=== PATIENT | female | born 2000 | race Caucasian/White ===

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

== ENCOUNTER 2022-07-02 11:41 | Emergency (ER) | payer BC, SELFPAY ==
[2022-07-02] VITALS (9 sets, daily range): BP systolic 107–122; BP diastolic 67–79; PULSE 69–89; RESP 20; TEMP 36.6; O2SAT 97–100; BMI 29.3
--- NOTE | 2022-07-02 12:36 | ED.GENADULT ---
HPI - General Adult General Time Seen by Provider: 12:36 Date Seen: 07/02/22 Chief complaint: Headache/Migraine Stated complaint: Headache Time Seen by Provider: 07/02/22 12:01 Source: patient Mode of arrival: ambulatory Limitations: no limitations History of Present Illness HPI narrative: Arlette is a 21-year-old female past medical history includes chronic migraines, depression anxiety presents emerged department via private car with a headache. Patient states that she has chronic migraines which are on the right side frontal area, there there daily, she takes nortriptyline 35 mg at bedtime for preventive medication, migraines usually migrate across her forehead, tension-like as well as pounding in nature. Patient denies any aura, patient denies any photophobia or diplopia, patient denies any neck pain. However when she moves around the headache gets worse, headache has been present since Tuesday, Benadryl has helped in the past, she did take some early this morning but it did not help with her symptoms, she has associated nausea but no vomiting, she denies any focal weakness, paresthesias or numbness. She denies any lightheadedness or dizziness. No fevers or chills, no cough, chest pain or shortness of breath. Headache was not a thunderclap, but patient states this is the worse headache she has had, due to worsening symptoms presents emerged department. Related Data Home Medications Medication Instructions Recorded Confirmed Zyrtec 12/10/21 escitalopram oxalate 20 mg tablet 20 mg PO DAILY 12/10/21 12/10/21 (Lexapro) fluticasone propionate 50 1 spray intranasal DAILY PRN 12/10/21 12/10/21 mcg/actuation nasal spray,suspension nortriptyline 25 mg capsule 25 mg 12/10/21 Previous Rx's Medication Instructions Recorded prochlorperazine maleate 10 mg 10 mg PO Q6H PRN #10 tabs 07/02/22 tablet (Compazine) Allergies Allergy/AdvReac Type Severity Reaction Status Date / Time No Known Drug Allergies Allergy Verified 12/10/21 16:58 Review of Systems Status of ROS: Reports: 10 or more systems reviewed and unremarkable except as noted in History and below PFSH PFSH Social History Smoking Status: Never smoker Do you use any of these nicotine containing products: None Second hand tobacco smoke exposure: No How often do you have a drink containing alcohol: 2-3 times a week How many standard drinks containing alcohol do you have on a typical day: 1 or 2 How often do you have six or more drinks on one occasion: Never AUDIT-C Alcohol total score: 3 Non-prescribed substance use: marijuana (any form) service: No Exam Narrative: Exam Narrative: General: No obvious distress sitting comfortably, nontoxic in appearance HEENT: Tympanic membranes within normal limits bilaterally, oropharynx is clear and moist, pupils equal round reactive to light, extraocular muscles intact Neck: No meningeal signs, supple full range of motion Lungs: Clear to auscultation bilaterally Heart: NSR, S1S2 Abdomen: Soft nontender, bowel sounds present Muscle skeletal: +5 strength upper lower extremities bilaterally Neuro: Alert awake and oriented x3, GCS 15, no focal deficits Psych: Mood and affect normal Const: Vital Signs, click to edit/add: Vital Signs - 24 hr 07/02/22 11:55 Temperature 97.9 F Pulse Rate [Pulse Oximeter] 81 Respiratory Rate 20 Blood Pressure [Ri ght Upper Arm] 122/76 Pulse Oximetry 97 Oxygen Delivery Me thod Room Air Course Course Hospital Course: 12:45 PM: AIDET performed. Vitals are normal at this time, plan to treat as a exacerbation of the chronic migraine, patient states she has not had a migraine like this in the past, it was not a thunder clap headache, will hold on imaging at this time, will try some IV Compazine 5 mg, 15 mg IV Toradol and 0.9 normal saline bolus 1st to see if she gets some symptomatic relief before ordering any imaging. Patient was in agreement. Differential diagnosis include life-threatening of subarachnoid hemorrhage, meningitis, encephalitis, carbon monoxide poisoning and intracerebral hemorrhage. Other differential diagnosis include but not limited to migraine, cluster headache, tension headache, [employer]ING [employer] vasculitis, mass lesion, temporal arteritis, acute closed angle glaucoma supple or trigeminal neuralgia and sinusitis. Reevaluation(s) Reevaluation #1: Patient was up ambulating to the bathroom, she is feeling better after above care given, pain is 5/10, will give additional 5 mg IV Compazine. Time: 13:45 Vital Signs Vital signs: Initial Vital Signs Temperature 97.9 F 07/02/22 11:55 Temperature Source Temporal Artery Scan 07/02/22 11:55 Pulse Rate 81 07/02/22 11:55 Pulse Rhythm Regular 07/02/22 11:55 Respiratory Rate 20 07/02/22 11:55 Blood Pressure 122/76 07/02/22 11:55 Blood Pressure Mean 91 07/02/22 11:55 Blood Pressure Position Supine 07/02/22 11:55 Pulse Oximetry 97 07/02/22 11:55 Oxygen Delivery Method Room Air 07/02/22 11:55 Vital Signs Temperature 97.9 F 07/02/22 11:55 Pulse Rate 81 07/02/22 11:55 Respiratory Rate 20 07/02/22 11:55 Blood Pressure 122/76 07/02/22 11:55 Pulse Oximetry 97 07/02/22 11:55 Oxygen Delivery Method Room Air 07/02/22 11:55 Temperature 97.9 F 07/02/22 11:55 Pulse Rate 69 07/02/22 13:22 Respiratory Rate 20 07/02/22 11:55 Blood Pressure 107/67 07/02/22 13:21 Pulse Oximetry 100 07/02/22 13:22 Oxygen Delivery Method Room Air 07/02/22 11:55 Discharge Plan Discharge Clinical Impression: Migraine Patient Disposition: Home, Self-Care Condition: Improved Instructions: Migraine Headache (ED) Additional Instructions: To take Compazine 10 mg orally every 6 hours in addition to 600 mg Motrin if headache returns, follow-up with primary care provider over the next 7-10 days. Activity Level: No Restrictions Discharge Diet: Regular Prescriptions: New prochlorperazine maleate [Compazine] 10 mg tablet 10 mg PO Q6H PRNQty: 10 0RF No Action nortriptyline 25 mg capsule 25 mg Patient Comments: TAKE 1 CAPSULE BY MOUTH EVERY DAY escitalopram oxalate [Lexapro] 20 mg tablet 20 mg PO DAILY Zyrtec fluticasone propionate 50 mcg/actuation spray,suspension 1 spray intranasal DAILY PRN Rx Instructions: administer into each nostril Follow Up/Referrals: Provider,Not a Local [Primary Care Provider] - Stand Alone Forms: MyHealth Info Instructions
--- OUTSIDE RECORDS SUMMARY | 2022-07-02 12:54 | XMS_ITS | Summary of Care ---
Author Name Unknown Organization [facility] Address [address] [place] [address]. [place] [address]- Care Team Providers Care Crossing Flagman Name Role Phone KELLY EDWARDS, DONNIE Borrero Primary Care Physician Encounter [facility] [id number] Date(s): 06/02/22 - 06/02/22 [facility], [place] [id number] [[email or web address] Discharge Disposition: Discharge Attending Physician: ANITA MENDEZ MD Referring Physician: PAOLA LAKHANI MD Allergies, Adverse Reactions, Alerts Substance Reaction Severity Status Ragweed Active Medications No Known Medications Problem List No Known Problems
--- OUTSIDE RECORDS SUMMARY | 2022-07-02 12:54 | XMS_ITS | Summary of Care ---
Author Name Unknown Organization [facility] Address [address] [place] [id number]- Care Team Providers Care Rehabilitation Clerk Name Role Phone KELLY EDWARDS, DONNIE Borrero Primary Care Physician Encounter [facility] [id number] Date(s): 05/13/22 - 05/13/[address] [address]- Discharge Disposition: Discharge Attending Physician: RADHA WHITE MD Referring Physician: PAOLA LAKHANI MD Allergies, Adverse Reactions, Alerts Substance Reaction Severity Status Ragweed Active Problem List No Known Problems
--- OUTSIDE RECORDS SUMMARY | 2022-07-02 12:54 | XMS_ITS | Summary of Care ---
Author Name Unknown Organization [facility] Address [address] [place] [id number]- Care Team Providers Care Nursery Laborer Name Role Phone DONNIE MENDOZA MD Primary Care Physician Encounter [facility]N [id number] Date(s): 01/27/22 - 01/27/[address] [address]- Encounter Diagnosis Other malaise(Final) - Other fatigue(Final) - Mild cognitive impairment of uncertain or unknown etiology(Final) - Cough, unspecified(Final) - Unspecified asthma, uncomplicated(Final) - Discharge Disposition: Discharge Attending Physician: DYLAN RESENDEZ MD Referring Physician: DONNIE MENDOZA MD Allergies, Adverse Reactions, Alerts Substance Reaction Severity Status Ragweed Active Problem List No Known Problems
--- OUTSIDE RECORDS SUMMARY | 2022-07-02 12:54 | XMS_ITS | Summary of Care ---
Author Name Unknown Organization [facility] Address [address] [place] [address]- Care Team Providers Care Front End Developer Name Role Phone DONNIE MENDOZA MD Primary Care Physician Encounter [facility] [id number] Date(s): 01/27/22 - 01/27/[address] [address]- Encounter Diagnosis Other malaise(Final) - Other fatigue(Final) - Mild cognitive impairment of uncertain or unknown etiology(Final) - Cough, unspecified(Final) - Unspecified asthma, uncomplicated(Final) - Discharge Disposition: Discharge Attending Physician: ADAN HILLS MD Referring Physician: DONNIE MENDOZA MD Allergies, Adverse Reactions, Alerts Substance Reaction Severity Status Ragweed Active Medications Lexapro 20 mg oral tablet Dose: 20 mg, Dose Amount: 1 tab, PO, daily, Dispense Quantity: 90 tab, Refills: 1, Entered: 01/27/22 15:22:00 EST, [id number] Start Date: 01/27/22 Stop Date: 07/26/22 Status: Ordered nortriptyline 25 mg oral capsule Dose: 25 mg, Dose Amount: 1 cap, PO, daily, Dispense Quantity: 90 cap, Refills: 1, Entered: 01/27/22 15:21:00 EST, [facility] Start Date: 01/27/22 Stop Date: 07/26/22 Status: Ordered Zofran 4 mg oral tablet Dose: 4 mg, Dose Amount: 1 tab, PO, BID, Special Instructions: one tab prn migraine headache along with Advil. May take two times per day, Dispense Quantity: 20 tab, Refills: 0, Entered: 01/27/22 15:23:00 EST, [id number] Start Date: 01/27/22 Status: Ordered Zomig-ZMT 5 mg oral tablet, disintegrating See Instructions, Special Instructions: tab mg PO prn migraine, Dispense Quantity: 6 tab, Refills: 1, Entered: 01/27/22 15:25:00 [id number] Start Date: 01/27/22 Status: Ordered Problem List No Known Problems
--- OUTSIDE RECORDS SUMMARY | 2022-07-02 12:54 | XMS_ITS | Summary of Care ---
Author Name Unknown Organization [facility] Address [address] [place] [address]- Care Team Providers Care Wellness Nurse Rn Name Role Phone KELLY EDWARDS, DONNIE Borrero Primary Care Physician Encounter [facility] [id number] Date(s): 08/10/22 - 06/17/[address] [address]- Attending Physician: ADAN HILLS MD Referring Physician: PAOLA LAKHANI MD Allergies, Adverse Reactions, Alerts Substance Reaction Severity Status Ragweed Active Problem List No Known Problems
--- OUTSIDE RECORDS SUMMARY | 2022-07-02 12:54 | XMS_ITS | Summary of Care ---
Author Name Unknown Organization [facility] Address [address] [place] [address] Care Team Providers Care News Editor Name Role Phone KELLY EDWARDS, DONNIE Borrero Primary Care Physician ( [phone] Encounter [facility] [id number] Date(s): 04/21/22 - 04/21/[address] [address]- Discharge Disposition: Discharge Attending Physician: DYLAN RESENDEZ MD Referring Physician: PAOLA LAKHANI MD Allergies, Adverse Reactions, Alerts Substance Reaction Severity Status Ragweed Active Problem List No Known Problems
[2022-07-02] MEDS: 0.9 % SODIUM CHLORIDE 1000 ml 1,000 ML IV (13:16)
[2022-07-02] MEDS: PROCHLORPERAZINE 5 MG/ML VIAL IV ×2 (13:16→13:45)
[2022-07-02] MEDS: KETOROLAC 15 MG/ML inj IVP (13:16)
== END 2022-07-02 14:50 | disposition home or self-care (01) ==
PROVIDERS: Emergency Provider Student in an Organized Health Care Education/Training Program
DX: G43.909 Migraine, unspecified, not intractable, without status migrainosus (principal)
CPT/HCPCS: 96374; 96375; 96376; 99283; 99284; J0780; J1885; J7030

== ENCOUNTER 2022-07-06 14:34 | Outpatient (CLI) | payer BC, SELFPAY ==
--- NOTE | 2022-07-06 15:00 | CRLHL7_ITS ---
For Patients: As a result of the Century Cures Act, medical imaging exams and procedure reports are released immediately into your electronic medical record. You may view this report before your referring provider. If you have questions, please contact your health care provider. Indication: periumbilical abdominal pain Technique: Postcontrast CT abdomen and pelvis. 89 cc Isovue 370 intravenous contrast. Please note that all CT scans at this facility use dose modulation, iterative reconstruction, and/or weight-based dosing when appropriate to reduce radiation dose to as low as reasonably achievable. Comparison: None Findings: Lung bases are clear. Normal liver and gallbladder. Normal spleen and pancreas. Normal kidneys and adrenal glands. Normal bladder, uterus and ovaries. No bowel obstruction or free air. No excess pelvic free fluid or abscess. Normal appendix. No adenopathy. No abdominal wall hernia. Osseous structures normal. Impression: Normal CT of the abdomen and pelvis. No abdominal wall hernia. No inflammatory changes within the abdomen or pelvis. Please note that all CT scans at this facility use dose modulation, iterative reconstruction, and/or weight-based dosing when appropriate to reduce radiation dose to as low as reasonably achievable. Dictated by Papito Delcid MD @ 07/07/2022 3:23:26 PM (Electronically Signed)
== END 2022-07-06 14:35 | disposition home or self-care (01) ==
LOC: CT 14:36
PROVIDERS: Visit Provider Internal Medicine Gastroenterology
DX: R10.33 Periumbilical pain (principal)
CPT/HCPCS: 74177; Q9967